=== PATIENT | male | born 2005 | race Caucasian/White ===

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

== ENCOUNTER → 2024-01-21 | Outpatient (CLI) | payer BC ==
--- NOTE | 2024-01-21 11:56 | XR ---
EXAMINATION TYPE: XR abdomen complete w decub DATE OF EXAM: 01/21/2024 11:12 AM CLINICAL INDICATION: Male, 18 years old with history of K59.00 constipation; COMPARISON: None. TECHNIQUE: Two views of the abdomen were obtained. FINDINGS: Moderate amount stool in the colon. The bowel gas pattern is nonspecific without dilated lo ops of small or large bowel. There is no evidence for organomegaly or pneumoperitoneum. The osseous structures are intact. No abnormal calcifications are present. Fecal material and gas are demonstrat ed throughout the colon and rectum. IMPRESSION: Moderate amount of stool in the right colon. Nonspecific bowel gas pattern without radiographic evide nce for acute process. [facility], , 01/21/2024 11:53 AM
== END | disposition home or self-care (01) ==
LOC: RADXRMAIN 10:39
PROVIDERS: ATTEND Family Medicine
DX: K59.00 Constipation, unspecified (principal)
CPT/HCPCS: 74021